=== PATIENT | female | born 1995 | race Two or more races ===

== ENCOUNTER 2022-09-25 16:14 | Emergency (ER) | payer SELFPAY ==
[2022-09-25] MEDS ORDERED: Ibuprofen 600 MG Tab PO ONE (17:38)
[2022-09-25] MEDS ORDERED: Acetaminophen 325 MG Tab PO ONE (17:43)
== END 2022-09-25 19:08 | disposition home or self-care (01) ==
LOC: JD.ED 16:14
DX: S01.01XA Laceration without foreign body of scalp, initial encounter (principal); W22.8XXA Striking against or struck by other objects, initial encounter
CPT/HCPCS: 12001; 70450; 99284; A9270